=== PATIENT | female | born 1980 | race Caucasian/White ===

== ENCOUNTER 2016-03-25 13:45 | Emergency (ER) | payer MEDICARE, MEDICAID ==
[~2016-03-25] VITALS: Ht 165.1 cm; Wt 61.4 kg
[2016-03-25 14:30] VITALS: BP 134/87; PULSE 56; RESP 18; O2SAT 97
--- NOTE | 2016-03-25 15:24 | ED.REPORT ---
HPI-Abd Pain F Under 40 Date of Service Mar 25, 2016 ED Provider: Farhad Curiel MD A 35 year old female with a history of diarrhea since childhood, recent C. difficile diagnosis, and bipolar disorder presents to the ED complaining of abdominal pain and diarrhea. The pt suspects that her abdominal pain began in that she thinks may have been related to antibiotics that she was taking for tooth pain. The pt began feeling right sided abdominal pain in 07/2015, which has been worsening since. She was seen by her PCP on 03/02/[address] was performed, and was diagnosed with a colon infection. She began taking Cipro and Flagyl, after which she began to experience severe diarrhea and a fever of 100.5 degrees. Her last recorded fever was four days ago. The pt went to Urgent Care two days ago and had a stool sample taken. The nurse then called her with the diagnosis of C. difficile, resulting in her current visit to the ED. The pt's abdominal pain has spread from her right side to the rest of her abdomen, though she denies vomiting. She has been managing her pain with a mild diet, [place], and occasional [place]. Nursing Notes Stated Complaint: POSS CDIFF/SENT FROM URGENT CARE Chief Complaint: General Complaint Nursing Notes Reviewed: Yes Allergies: Coded Allergies: Adhesives (Verified Allergy, Unknown, 03/25/16) Penicillins (Verified Allergy, Unknown, Rash and GI, 03/25/16) adhesive tape (Verified Allergy, Unknown, Burning, blistering, skin removal, 03/25/16) lamotrigine (Verified Allergy, Unknown, Rash, 03/25/16) paliperidone (Verified Allergy, Unknown, Suicidal ideation/attempt, ) tramadol (Verified Allergy, Unknown, Mild anaphylaxis, 03/25/16) General Time Seen by MD: 15:21 Chief Complaint Other (Diarrhea) Hx Obtained From: Patient, Other family... Arrived By: Walk-in Sudden in Onset?: No Onset Occurred: More than a week ago... Symptom Duration: Since onset Progression since Onset: Gradually worsening Recent Healthcare: No recent hospitalization, Recent doctor visit Similar Sx Previous: Yes Past Medical History Past Medical History diarrhea since childhood C. difficile bipolar disorder Past Surgical History none reported Smoking History Former Smoker Social History Drug Use: THC Other Social History: Good social support Ambulatory Status Independent Review of Systems Constitutional: Reports: Fever Respiratory: Denies: Non-productive cough Cardiovascular: Denies: Chest pain GI: Reports: Abdominal pain, Diarrhea, Denies: Vomiting Musculoskeletal: Denies: Back pain Complete sys rev & neg: except as marked. Physical Exam Initial Vital Signs Vital Signs (First) Date Time Temp Pulse Resp B/P Pulse Ox O2 Delivery O2 Flow Rate FiO2 03/25/16 14:30 36.8 56 18 134/87 97 Room Air Initial VS: Reviewed General/Constitutional: Awake, Alert Respiratory / Chest: Atraumatic, Breath sounds NL, Breath sounds = bilat, No respiratory distress Cardiovascular: Heart rate NL, Regular rhythm, Heart sounds NL Abdomen: Atraumatic, Soft, Non-tender Back: Atraumatic, Full range of motion Head / Eyes: Atraumatic, Normocephalic, PERRL, EOMI ENT: Atraumatic, Airway patent, Mucous membranes moist Skin: Atraumatic, Color NL, No rash, Warm, Dry Neurologic: Oriented X3, Speech NL, No motor deficits, No sensory deficits Neck: Atraumatic, Supple, Full range of motion Upper Extremity / MS: Atraumatic, Full range of motion Lower Extremity / Pelvis / MS: Atraumatic, Full range of motion Psychiatric: Affect NL, Mood NL Interpretation & Diagnostics Lab Results Interpretation Result Diagram: 03/25/16 1655 03/25/16 1655 Test 03/25/16 16:55 White Blood Count 6.4th/mm3 (3.8-10.1) Red Blood Count 4.16mil/mm3 (3.90-5.20) Hemoglobin 12.8g/dL (12.0-15.6) Hematocrit 39.2% (35.0-46.0) Mean Corpuscular Volume 94.2fL (81-100) Mean Corpuscular Hemoglobin 30.8pg (27.0-35.0) Mean Corpuscular Hemoglobin Concent 32.7% (32.0-37.0) Red Cell Distribution Width 13.2% (12.3-15.4) Platelet Count 212bil/L (150-400) Neutrophils (%) (Auto) 71.1% (40-74) Lymphocytes (%) (Auto) 20.5% (14-46) Monocytes (%) (Auto) 5.6% (4-12) Eosinophils (%) (Auto) 2.0% (0-5) Basophils (%) (Auto) 0.8% (0-3) Sodium Level 139mEq/L (134-144) Potassium Level 4.2mEq/L (3.5-5.2) Chloride Level 105mEq/L (97-108) Carbon Dioxide Level 22mmol/L (18-29) Blood Urea Nitrogen 3mg/dL (6-20) Creatinine 0.74mg/dL (0.57-1.00) Estimat Glomerular Filtration Rate 126mL/min (>59) Glucose Level 96mg/dL (60-99) Calcium Level 8.6mg/dL (8.5-10.1) Total Bilirubin < 0.2mg/dL (0.0-1.2) Aspartate Amino Transf (AST/SGOT) 18U/L (0-50) Alanine Aminotransferase (ALT/SGPT) 12U/L (0-32) Alkaline Phosphatase 47U/L (25-150) Total Protein 6.4g/dL (6.4-8.4) Albumin 4.0g/dL (3.4-5.0) Hold [place] Top Tube Received (Received) Re-Eval/Medical Decision Source of Hx: Old records Re-Evaluation/Progress #1: Time of Eval: 17:08 Patient Status: Condition improved Re-Evaluation/Progress Note: Pt rechecked, who is resting. She is informed of treatment and consultation plan. Re-Evaluation/Progress #2: Time of Eval: 18:12 Patient Status: Condition improved Re-Evaluation/Progress Note: Pt rechecked, who is resting comfortably. She is informed of lab results, diagnosis, and consultation. The plan for discharge is discussed. The pt understands and agrees with the plan. All questions are addressed at this time. Consultation : Referral / Consult Name: Laurent Srinivasan MD Call Returned at: 18:05 Credit Card Specialist: Agrees with eval, Agrees with plan Note: Consulted with Dr. Srinivasan, infectious disease specialist, regarding pt's case. Dr. Srinivasan recommends discharge with follow up. He recommends vancomycin orally or Dificid. Counseled Regarding: Diagnosis, Lab results, Need for follow-up, When/why to return to ED Discharge & Departure Primary Impression: C. difficile colitis Disposition: Home Discharge Condition All VS Reviewed: Yes Condition: Stable Patient Instructions: Clostridium Difficile Infection (ED) Additional Instructions: Use vancomycin orally 4 times a day for 2 weeks or Dificid twice daily for [address] Laurent Srinivasan's clinic Sunday for follow-up within the next one or 2 weeks. Pain careful attention to handwashing to prevent the spread of this infection. Use hydrocodone/APAP as needed for severe pain if Tylenol or ibuprofen alone are insufficient to control her pain. This should be used very sparingly. Return to the emergency department if you are getting much worse with symptoms such as repeated vomiting, high fever or uncontrolled pain Referrals: Kenneth Cummings PA-C (PCP) Laurent Srinivasan MD Attestation Portions of this note were transcribed by Chen Sharif. I, Dr. Curiel personally performed the history, physical exam and medical decision-making; I reviewed and confirmed the accuracy of the information in the transcribed note. Signed by: Jeremiah Contreras, 03/25/2016 and 18:23. copies to: Kenneth Cummings PA-C; Laurent Srinivasan MD, Kirk H MD Mar 25, 2016 15:24 CHEN SHARIF Mar 25, 2016 15:50
[2016-03-25 17:08] LABS: BASOPHILS % (AUTO) 0.8 % (0-3); MONOCYTES % (AUTO) 5.6 % (4-12); Mean Corpuscular Hemoglobin 30.8 pg (27.0-35.0); Mean Corpuscular Volume 94.2 fL (81-100); NEUTROPHILS % (AUTO) 71.1 % (40-74); Platelet Count 212 bil/L (150-400)
[2016-03-25] MEDS ORDERED: FIDA200T PO (18:35)
[2016-03-25] MEDS ORDERED: VANC125C10 PO (18:35)
[2016-03-25 18:51] VITALS: BP 96/67; PULSE 57; RESP 16; O2SAT 98
== END 2016-03-25 18:53 | disposition home or self-care (01) ==
LOC: SED 13:45
DX: A04.7 Enterocolitis due to Clostridium difficile (principal); Z88.0 Allergy status to penicillin; Z88.8 Allergy status to other drugs, medicaments and biological substances; Z87.891 Personal history of nicotine dependence

== ENCOUNTER 2016-04-03 18:50 | Emergency (ER) | payer MEDICARE, MEDICAID ==
[~2016-04-03] VITALS: Ht 165.1 cm; Wt 61.4 kg
[~2016-04-03 18:50] MED LIST: FIDA200T PO; VANC125C10 PO
[2016-04-03 19:09] VITALS: BP 114/76; PULSE 62; RESP 16; O2SAT 99
[2016-04-03 20:15] LABS: BASOPHILS % (AUTO) 0.9 % (0-3); EOSINOPHILS % (AUTO) 2.8 % (0-5); MONOCYTES % (AUTO) 6.5 % (4-12); Mean Corpuscular Hemoglobin 31.1 pg (27.0-35.0); Mean Corpuscular Volume 94.2 fL (81-100); NEUTROPHILS % (AUTO) 67.6 % (40-74); Platelet Count 260 bil/L (150-400)
[2016-04-03 20:57] LABS: Magnesium 2.4 mg/dL (1.6-2.6)
[2016-04-03 21:47] LABS: APPEARANCE,URINE CLEAR (CLEAR,HAZY); COLOR,URINE YELLOW (YELLOW); OCCULT BLOOD,URINE NEGATIVE (NEGATIVE); PH,URINE 7.5 (5.0-8.0)
[2016-04-03 21:48] LABS: UROBILINOGEN,URINE NORMAL (NORMAL)
== END 2016-04-03 21:50 | disposition left against medical advice (07) ==
LOC: SED 18:50
DX: Z53.20 Procedure and treatment not carried out because of patient's decision for unspecified reasons (principal)